=== PATIENT | female | born 1930 | race Caucasian/White ===

== ENCOUNTER 2017-05-25 15:06 | Emergency (ER) | payer MEDICARE, BC ==
[~2017-05-25] VITALS: Ht 165.1 cm; Wt 59.0 kg
[~2017-05-25 15:06] MED LIST: ACET500 PO; ALBU90OI INH; ASPI81EC PO; CHOL10002 PO; CIPR500 PO; CONEST.3; DOCU100 PO; FERROUS SULFATE PO; FURO40; LISI20; ONDA4ODT MM; OSTEO BI-FLEX1 EAC2 PO; PROACE100 PO; RAMI5 PO; TRIHYD; TRIHYD253A PO; VENL75ER PO
[2017-05-25] MEDS ORDERED: CARV6.25 PO (17:45)
[2017-05-25] MEDS ORDERED: ALBU90OI61 INH (17:46)
== END 2017-05-25 17:20 | disposition home or self-care (01) ==
LOC: ER 15:06
DX: S06.0X0A Concussion without loss of consciousness, initial encounter (principal); S30.0XXA Contusion of lower back and pelvis, initial encounter; I10 Essential (primary) hypertension; Z90.710 Acquired absence of both cervix and uterus; W19.XXXA Unspecified fall, initial encounter
CPT/HCPCS: 36415; 70450; 72220; 99284

== ENCOUNTER 2017-05-29 15:48 | Emergency (ER) | payer MEDICARE, BC ==
[~2017-05-29] VITALS: Ht 162.6 cm; Wt 63.5 kg
[~2017-05-29 15:48] MED LIST changes: +ALBU90OI61 INH; +CARV6.25 PO
== END 2017-05-29 18:13 | disposition home or self-care (01) ==
LOC: ER 15:48
DX: T14.8XXA Other injury of unspecified body region, initial encounter (principal); R16.1 Splenomegaly, not elsewhere classified; R18.8 Other ascites; W01.10XA Fall on same level from slipping, tripping and stumbling with subsequent striking against unspecified object, initial encounter; I10 Essential (primary) hypertension
CPT/HCPCS: 74176; 96374; 96375; 99284; J1170; J1885; J2405

== ENCOUNTER 2017-06-04 17:46 | Emergency (ER) | payer MEDICARE, BC ==
[~2017-06-04] VITALS: Ht 165.1 cm; Wt 55.8 kg
[2017-06-04 18:34] LABS: Hematocrit 33.6 % (33.0-51.0); Hemoglobin 10.4 g/dL (11.5-16.0); Mean Corpuscular HGB 27.7 pg (26.0-34.0); Mean Corpuscular Volume 90 fL (80-100); Mean Platelet Volume 9.8 fL (9.1-12.4); Platelet Count 126 K/mm3 (150-400); RDW Coefficient Variation 14.7 % (11.7-14.2); RDW Standard Deviation 48.2 fL (35.1-46.3); Red Blood Cell Count 3.75 M/mm3 (3.80-5.20); White Blood Cell Count 7.38 K/mm3 (4.00-11.30)
[2017-06-04 18:53] LABS: Albumin, Blood 3.7 g/dL (3.4-5.0); Albumin/Globulin Ratio 1.2 (0.8-1.8); Bilirubin, Total 0.5 mg/dL (0.1-1.0); Bun/Creatinine Ratio 35.3 (12.0-20.0); Creatinine, Blood 1.02 mg/dL (0.40-1.00); Globulin, Blood 3.2 g/dL (2.2-4.0)
[2017-06-04 19:10] LABS: BASOPHILS PERCENT MAN 0 % (0-2); EOSINOPHILS ABSOLUTE MAN 0.07 K/mm3 (0.00-0.68); EOSINOPHILS PERCENT MAN 1 % (0-6); LYMPHOCYTES % ATYPICAL MANUAL 2 % (0-0); LYMPHOCYTES ABSOLUTE MAN 2.14 K/mm3 (0.84-5.20); LYMPHOCYTES PERCENT MAN 27 % (21-46); MONOCYTES ABSOLUTE MAN 0.29 K/mm3 (0.16-1.47); MONOCYTES PERCENT MAN 4 % (4-13); NEUTROPHILS ABSOLUTE MAN 4.87 K/mm3 (1.96-9.15); SEG NEUTROPHILS PERCENT MAN 66 % (41-73); TOTAL CELLS COUNTED 100
[2017-06-04 19:35] LABS: Calcium, Blood 10.6 mg/dL (8.5-10.1); Total Protein, Blood 6.9 g/dL (6.4-8.2)
[2017-06-04 19:54] LABS: Free Thyroxine 1.24 ng/dL (0.70-1.60)
[2017-06-04 20:00] LABS: Thyroid Stimulating Hormone 0.775 uIU/mL (0.360-4.800)
[2017-06-04 20:08] LABS: Triiodothyronine, Free 2.16 pg/mL (2.18-3.98)
[2017-06-04 20:15] LABS: Calcium, Ionized (POC) 1.29 mmol/L (1.10-1.46); Chloride (POC) 102 mmol/L (98-108); Glucose (ISTAT POC) 117 mg/dL (70-99); Hemoglobin (POC) 9.5 g/dL (12.0-16.0); Potassium (POC) 3.6 mmol/L (3.5-5.5); Sodium (POC) 141 mmol/L (135-148); Total CO2 (POC) 28 mmol/L (21-32)
== END 2017-06-04 21:10 | disposition home or self-care (01) ==
LOC: ER 17:46
PROVIDERS: Emergency Medicine
DX: R41.82 Altered mental status, unspecified (principal); Z88.8 Allergy status to other drugs, medicaments and biological substances; Z88.5 Allergy status to narcotic agent; Z79.899 Other long term (current) drug therapy; Z79.82 Long term (current) use of aspirin; I10 Essential (primary) hypertension
CPT/HCPCS: 36415; 70450; 71046; 71260; 80047; 80053; 83735; 83930; 84100; 84439; 84443; 84481; 85014; 85025; 93005; 93010; 93308; 93321; 96360; 99284; J7030; Q9967

== ENCOUNTER 2017-06-11 17:20 | Emergency (ER) | payer MEDICARE, BC ==
[~2017-06-11] VITALS: Ht 165.1 cm; Wt 58.5 kg
[2017-06-11 18:07] LABS: BASOPHILS ABSOLUTE AUTO 0.03 K/mm3 (0.00-0.23); BASOPHILS PERCENT AUTO 0 % (0-2); EOSINOPHILS ABSOLUTE AUTO 0.25 K/mm3 (0.00-0.68); EOSINOPHILS PERCENT AUTO 4 % (0-6); Hematocrit 30.7 % (33.0-51.0); Hemoglobin 9.5 g/dL (11.5-16.0); Mean Corpuscular HGB 27.8 pg (26.0-34.0); Mean Corpuscular HGB Conc 30.9 g/dL (31.5-36.5); Mean Corpuscular Volume 90 fL (80-100); Mean Platelet Volume 9.8 fL (9.1-12.4); Platelet Count 123 K/mm3 (150-400); RDW Coefficient Variation 14.7 % (11.7-14.2); RDW Standard Deviation 47.4 fL (35.1-46.3); Red Blood Cell Count 3.42 M/mm3 (3.80-5.20)
[2017-06-11 18:10] LABS: IMMATURE GRAN ABSOLUTE AUTO 0.02 K/mm3 (0.00-0.10); IMMATURE GRAN PERCENT AUTO 0 % (0-1); LYMPHOCYTES ABSOLUTE AUTO 3.96 K/mm3 (0.84-5.20); LYMPHOCYTES PERCENT AUTO 58 % (21-46); MONOCYTES ABSOLUTE AUTO 0.34 K/mm3 (0.16-1.47); MONOCYTES PERCENT AUTO 5 % (4-13); NEUTROPHILS PERCENT AUTO 32 % (41-73)
[2017-06-11 18:22] LABS: International Normalized Ratio 1.06
[2017-06-11 18:29] LABS: Albumin, Blood 3.3 g/dL (3.4-5.0); Albumin/Globulin Ratio 1.1 (0.8-1.8); Bilirubin, Total 0.3 mg/dL (0.1-1.0); Bun/Creatinine Ratio 27.4 (12.0-20.0); Creatinine, Blood 0.99 mg/dL (0.40-1.00); Globulin, Blood 3.1 g/dL (2.2-4.0); Potassium, Blood 4.3 mmol/L (3.5-5.5); Total Protein, Blood 6.4 g/dL (6.4-8.2)
== END 2017-06-11 20:21 | disposition home or self-care (01) ==
LOC: ER 17:20
PROVIDERS: Emergency Medicine
DX: G45.9 Transient cerebral ischemic attack, unspecified (principal); R79.1 Abnormal coagulation profile; I10 Essential (primary) hypertension; Z88.8 Allergy status to other drugs, medicaments and biological substances; Z88.5 Allergy status to narcotic agent; Z79.899 Other long term (current) drug therapy; Z79.82 Long term (current) use of aspirin
CPT/HCPCS: 36415; 70450; 71046; 80053; 85025; 85610; 85730; 93005; 93010; 99284

== ENCOUNTER 2018-12-15 17:04 | Inpatient (IN) | payer MEDICARE, BC ==
[~2018-12-15] VITALS: Ht 160 cm; Wt 64.0 kg
[~2018-12-15 17:04] MED LIST changes: +ALLEGRA ALLERG180 MG PO; +Amoxicillin500 MG PO; +ELIQUIS2.5 MG PO; -LISI20; +LISI20 PO; +Metrocream45 GM TOP; +OSTEO BI-FLEX1 EACH PO; +SPIR25 PO
--- NOTE | 2018-12-16 07:43 | NUR ---
History, Chart, Medications and Allergies reviewed before start of procedure. Lungs clear T/O to Auscultation. Patient confirms NPO status and agrees with scheduled surgery. Pre-Op teaching done. Pt verbalizes understanding.
[2018-12-16 13:23] LABS: Performing Lab BLOODWORKS NW; Test Name ANTI-BODY ID
--- NOTE | 2018-12-16 18:44 | NUR ---
SHIFT SUMMARY PT POD 0 R KELLY. AQUACEL DRESSING C/D/I. PAIN MANAGED WITH SCHEDULED TORADOL/TYLENOL, PT REPORTS 0/10. UP WITH THERAPY AND TO CHAIR. VOIDING. PLAN TO DC HOME IF MEETING THERAPY GOALS.
[2018-12-17 04:36] LABS: BASOPHILS ABSOLUTE AUTO 0.01 K/mm3 (0.00-0.23); BASOPHILS PERCENT AUTO 0 % (0-2); EOSINOPHILS ABSOLUTE AUTO 0.01 K/mm3 (0.00-0.68); EOSINOPHILS PERCENT AUTO 0 % (0-6); Hematocrit 29.5 % (33.0-51.0); Hemoglobin 9.6 g/dL (11.5-16.0); IMMATURE GRAN ABSOLUTE AUTO 0.02 K/mm3 (0.00-0.10); IMMATURE GRAN PERCENT AUTO 0 % (0-1); LYMPHOCYTES ABSOLUTE AUTO 1.45 K/mm3 (0.84-5.20); LYMPHOCYTES PERCENT AUTO 15 % (21-46); MONOCYTES ABSOLUTE AUTO 0.98 K/mm3 (0.16-1.47); MONOCYTES PERCENT AUTO 10 % (4-13); Mean Corpuscular HGB 30.6 pg (26.0-34.0); Mean Corpuscular HGB Conc 32.5 g/dL (31.5-36.5); Mean Corpuscular Volume 94 fL (80-100); Mean Platelet Volume 10.7 fL (9.1-12.4); NEUTROPHILS ABSOLUTE AUTO 7.09 K/mm3 (1.96-9.15); NEUTROPHILS PERCENT AUTO 74 % (41-73); Platelet Count 155 K/mm3 (150-400); RDW Coefficient Variation 13.4 % (11.7-14.2); RDW Standard Deviation 46.2 fL (35.1-46.3); Red Blood Cell Count 3.14 M/mm3 (3.80-5.20); White Blood Cell Count 9.56 K/mm3 (4.00-11.30)
[2018-12-17 04:54] LABS: Calcium, Blood 8.4 mg/dL (8.5-10.1); Creatinine, Blood 1.1 mg/dL (0.40-1.00); Potassium, Blood 4.9 mmol/L (3.5-5.5)
--- NOTE | 2018-12-17 05:15 | NUR ---
SHIFT SUMMARY PT A&O X4 T/O SHIFT. VSS, NO ACUTE CHANGES. POD#1 R KELLY; DRESSING CDI. PPPX4; ALL EXT PWD, BRISK CAP REFILL. PAIN MANAGED PER EMAR; CRYOTHERAPY TO R HIP T/O SHIFT. PT REQUESTED TO SLEEP IN RECLINER, BLE ELEVATED. PÉREZ'S AND SCD'S TO BLE'S. PT UP TO TOILET AND AMBULATED IN GARCIA WITH FWW, GB AND SBA. CALL LIGHT IN REACH; PT DEMONSTRATES USE. WCTM UNTIL REPORT TO DAY SHIFT RN.
--- NOTE | 2018-12-17 07:00 | NUR ---
RECVD REPORT FROM PREVIOUS SHIFT RN VIOLETA, PT SLEEPING IN ROOM, CALL LIGHT WITHIN REACH
--- NOTE | 2018-12-17 07:40 | NUR ---
NICANOR PA TO ROOM TO DISCUSS OUTPT FU WITH PT. DRESSING ASSESSED. NO DRAINAGE NOTED. PLAN TO HAVE THERAPY WORK WITH PT AND DC HOME THIS AFTERNOON DEPENDING ON HOW THERAPY GOES. PT SEEMS APREHENSIVE RE DC. STATES THAT HER FAMILY "HAS A BUSY DAY"
[2018-12-17] MEDS ORDERED: TRAM50 PO (08:49)
--- NOTE | 2018-12-17 09:38 | NUR ---
physical therapy attempt to treat pt. therapy coach professional athletes not available. pt states he is at home, unable to come in. educated pt therapy coach professional athletes required per [facility] program, pt states she is unaware as she was unable to hear the instructions in class. pt instructed to call her in order to make appointment for therapy teaching. This RN spoke with Naveed, instructed the requirement and importance of the coach professional athletes to be available for PT. Naveed agrees to come for teaching/PT at 1045/1100 this morning. Physical therapy Gill notifed of time. this RN spent approx 10 min educated both pt and therapy coach professional athletes on the [facility] requirements for therapy and discharge expectation. Dr Emanuel and Garrett Samson both round on pt approx [id number], both explained discharge expectation to pt. Martha MOSHER and this RN also educated pt.
--- NOTE | 2018-12-17 11:52 | NUR ---
pt and spouse/assistant track coach provided with discharge instructions/teaching, one aquacel dressing for change in 1 week per md orders, written prescription for tramadol for pain. pt and spouse/assistant track coach state understanding of orders. peripheral IV removed WNL. pt escorted to awaiting vehicle with belongings via wheelchair.
== END 2018-12-17 11:44 | disposition home or self-care (01) | DRG 470 ==
LOC: SURS 12-16 07:02 → PRE IP 12-16 08:15 → SURS 12-16 12:28
PROVIDERS: ADMIT Orthopaedic Surgery
PROC: 0SR904A Replacement of Right Hip Joint with Ceramic on Polyethylene Synthetic Substitute, Uncemented, Open Approach (ICD-10-PCS; principal; 2018-12-16 08:15)
DX: M16.11 Unilateral primary osteoarthritis, right hip (principal); I10 Essential (primary) hypertension
CPT/HCPCS: 36415; 72170; 80048; 85025; 86850; 86870; 86880; 86900; 86901; 86906; 88300; 97110; 97116; 97162; 97530; C1776; J0171; J0690; J0735; J1100; J1885; J2405; J2704; J2710; J2795; J3010; J7120

== ENCOUNTER → 2019-02-19 | Outpatient (CLI) | payer MEDICARE, BC ==
[~2019-02-19] MED LIST changes: +TRAM50 PO
[2019-02-19 14:27] LABS: Source, Urine Clean Catch
[2019-02-19 14:59] LABS: Bilirubin, Urine Neg (Neg); Blood, Urine 5+ (Neg); Glucose Qualitative, Urine Neg (Neg); Ketones, Urine Neg (Neg); Leukocyte Esterase, Urine 3+ (Neg); Nitrite, Urine Pos (Neg); Protein, Urine 3+ (Neg); Urobilinogen, Urine NORM (Normal)
[2019-02-19 15:08] LABS: Appearance, Urine Cloudy (Clear); Color, Urine Yellow (P-Yellow)
[2019-02-19 15:14] LABS: White Blood Cells, Urine TNTC /hpf (0-5)
[2019-02-19 15:15] LABS: Bacteria Many /hpf; Squamous Epithelial Cells Few /hpf (Few)
== END | disposition home or self-care (01) ==
LOC: LAB SHORT 14:26 → LAB 14:26
PROVIDERS: Internal Medicine
DX: R30.0 Dysuria (principal)
CPT/HCPCS: 81001; 87077; 87086; 87186

== ENCOUNTER → 2019-02-26 | Outpatient (CLI) | payer MEDICARE, BC ==
[2019-02-26 15:46] LABS: Source, Urine Clean Catch
[2019-02-26 17:20] LABS: Bilirubin, Urine Neg (Neg); Blood, Urine 1+ (Neg); Glucose Qualitative, Urine Neg (Neg); Ketones, Urine Neg (Neg); Leukocyte Esterase, Urine 1+ (Neg); Nitrite, Urine Neg (Neg); Protein, Urine 2+ (Neg); Specific Gravity, Urine 1.015 (1.003-1.022); Urobilinogen, Urine NORM (Normal)
[2019-02-26 17:32] LABS: Appearance, Urine Clear (Clear); Color, Urine Yellow (P-Yellow)
[2019-02-26 17:33] LABS: Bacteria Mod /hpf; Squamous Epithelial Cells Mod /hpf (Few)
== END | disposition home or self-care (01) ==
LOC: OLS 15:43 → LAB SHORT 15:43
PROVIDERS: Internal Medicine
DX: N39.0 Urinary tract infection, site not specified (principal)
CPT/HCPCS: 81001; 87077; 87086; 87186

== ENCOUNTER → 2019-03-12 | Outpatient (CLI) | payer MEDICARE, BC ==
[2019-03-12 15:09] LABS: Source, Urine Clean Catch
[2019-03-12 16:11] LABS: Bilirubin, Urine Neg (Neg); Blood, Urine 1+ (Neg); Glucose Qualitative, Urine Neg (Neg); Ketones, Urine Neg (Neg); Leukocyte Esterase, Urine 2+ (Neg); Nitrite, Urine Neg (Neg); Protein, Urine Neg (Neg); Specific Gravity, Urine 1.015 (1.003-1.022); Urobilinogen, Urine NORM (Normal)
[2019-03-12 16:31] LABS: Appearance, Urine Clear (Clear); Color, Urine Yellow (P-Yellow)
[2019-03-12 16:33] LABS: Red Blood Cells, Urine 0-2 /hpf (0-2)
[2019-03-12 16:34] LABS: Bacteria Mod /hpf; Squamous Epithelial Cells Rare /hpf (Few)
== END | disposition home or self-care (01) ==
LOC: LAB SHORT 15:06 → OLS 15:06 → LAB FUT 03-10 16:35
PROVIDERS: Internal Medicine
DX: N39.0 Urinary tract infection, site not specified (principal)
CPT/HCPCS: 81001; 87086

== ENCOUNTER → 2019-06-12 | Outpatient (CLI) | payer MEDICARE, BC ==
[2019-06-12 13:24] LABS: Source, Urine Clean Catch
[2019-06-12 15:12] LABS: Bilirubin, Urine Neg (Neg); Blood, Urine Neg (Neg); Glucose Qualitative, Urine Neg (Neg); Ketones, Urine Neg (Neg); Leukocyte Esterase, Urine 1+ (Neg); Nitrite, Urine Neg (Neg); Protein, Urine 2+ (Neg); Urobilinogen, Urine NORM (Normal)
[2019-06-12 15:31] LABS: Appearance, Urine Clear (Clear); Color, Urine Yellow (P-Yellow)
[2019-06-12 15:34] LABS: Bacteria Few /hpf; Red Blood Cells, Urine 0-2 /hpf (0-2); Squamous Epithelial Cells Few /hpf (Few)
== END | disposition home or self-care (01) ==
LOC: LAB 13:22 → LAB SHORT 13:22 → LAB FUT 06-10 11:55
PROVIDERS: Internal Medicine
DX: N39.0 Urinary tract infection, site not specified (principal)
CPT/HCPCS: 81001; 87077; 87086; 87186

== ENCOUNTER → 2019-12-28 | Outpatient (CLI) | payer MEDICARE, BC ==
[~2019-12-28] MED LIST changes: +AMLO5 PO; +ASPI81CH PO; +BISA10S PR; +FURO20 PO; +HYDR10 PO; +Keflex500 MG PO; +POTCHL20ER PO; +SENN187 PO
[2019-12-31 14:25] LABS: Stool Occult Blood Guaiac 1 Neg (Neg)
[2019-12-31 14:26] LABS: Stool Occult Blood Guaiac 2 Neg (Neg); Stool Occult Blood Guaiac 3 Neg (Neg)
== END | disposition home or self-care (01) ==
LOC: LAB 09:00 → LAB SHORT 09:00
PROVIDERS: Internal Medicine
DX: D64.9 Anemia, unspecified (principal)
CPT/HCPCS: 82270

== ENCOUNTER → 2020-01-19 | Outpatient (CLI) | payer MEDICARE, BC ==
[2020-01-19 19:01] LABS: Protein, Urine Quantitative 36.9 mg/dL (0.0-11.9)
[2020-01-19 19:20] LABS: Calcium, Urine 15.8 mg/dL (< 17.5)
== END | disposition home or self-care (01) ==
LOC: LAB 17:41 → LAB SHORT 17:41 → LAB FUT 01-10 08:20
PROVIDERS: Internal Medicine
DX: E83.52 Hypercalcemia (principal); N17.9 Acute kidney failure, unspecified
CPT/HCPCS: 81050; 82340; 82570; 84156